=== PATIENT | female | born 1960 | race Caucasian/White ===

== ENCOUNTER → 2021-11-21 | Outpatient (CLI) | payer OTHER ==
--- NOTE | 2021-11-21 16:27 | MR ---
EXAMINATION TYPE: MR brain/cspine wo DATE OF EXAM: 11/21/2021 COMPARISON: None HISTORY: Dizziness, neck pain, stiffness, left arm weakness. The prior multiecho imaging of the brain and cervical spine without contrast. FINDINGS: There is some mild cerebral cortical atrophy. There is no mass effect or midline shift. There is no e vidence of intracranial hemorrhage. Diffusion images show no evidence of an acute infarct. The lowery a nd white matter structures have fairly normal signal pattern. There is no evidence of cerebral edema. There are a few tiny foci of increased signal on the T2 and FLAIR images at the lowery-white matter ju nction both cerebral hemispheres measuring up to 3 mm. Total number less than 10. Largest is in the r ight posterior frontal lobe. Brainstem is intact. Corpus callosum is intact. Sella turcica appears normal. There is no evidence of orbital mass. There is no evidence of posterior fossa mass. Cervical vertebra have normal spacing and alignment. There is no compression fracture. Disc spaces ar e fairly well-maintained. There is no spinal stenosis. There is a small posterior disc bulge at C6-7. There is developmentally adequate spinal canal. Cervical spinal cord has normal signal pattern. Ther e is no edema. There is no cervical paraspinal mass. Facet joints appear intact. IMPRESSION: Minimal posterior disc bulging at C6-7. Otherwise negative MR scan of the cervical spine. There are a few tiny white matter high signal foci in both cerebral hemispheres that are nonspecific and could relate to minimal microvascular ischemia. No evidence of cortical infarct.
== END | disposition home or self-care (01) ==
LOC: RADMRIMAIN 13:43
PROVIDERS: ATTEND Family Medicine
DX: M50.123 Cervical disc disorder at C6-C7 level with radiculopathy (principal); R90.89 Other abnormal findings on diagnostic imaging of central nervous system
CPT/HCPCS: 70551; 72141